=== PATIENT | male | born 1975 | race Caucasian/White ===

== ENCOUNTER → 2017-09-11 | Outpatient (CLI) | payer MEDICARE, BC ==
[2017-09-11 12:48] LABS: BASOPHILS # (AUTO) 0.03 x10^3/uL (0-0.1); BASOPHILS % (AUTO) 0 % (0-1); EOSINOPHILS # (AUTO) 0.28 x10^3/uL (0-0.4); EOSINOPHILS % (AUTO) 3 % (1-7); LYMPHOCYTES # (AUTO) 3.08 x10^3/uL (1-3.4); LYMPHOCYTES % (AUTO) 33 % (22-44); MD NO; MEAN CORPUSCULAR HGB CONC 34.6 g/dL (33.2-36.2); MEAN CORPUSCULAR VOLUME 95.5 fL (81-97); MEAN PLATELET VOLUME 10.1 fL (7.4-10.4); MONOCYTES # (AUTO) 0.81 x10^3/uL (0.2-0.8); MONOCYTES % (AUTO) 9 % (2-9); NEUTROPHILS # (AUTO) 5.15 x10^3/uL (1.8-6.8); NEUTROPHILS % (AUTO) 55 % (42-75); PLATELET COUNT 283 x10^3/uL (130-400); RED BLOOD COUNT 4.45 x10^6/uL (4.38-5.82); RED CELL DISTRIBUTION WIDTH 12.6 % (9.4-14.8)
[2017-09-11 13:21] LABS: HEMOGLOBIN A1C 10.2 % (4.2-6.3)
[2017-09-11 14:51] LABS: CHLORIDE 104 mmol/L (98-107)
[2017-09-11 15:04] LABS: ALANINE AMINOTRANSFERASE 29 U/L (12-78); ALBUMIN 3.6 g/dL (3.4-5.0); ALKALINE PHOSPHATASE 74 U/L (45-117); ANION GAP 11 mmol/L (5-15); BILIRUBIN,TOTAL 0.2 mg/dL (0.2-1.0); CALCIUM 8.8 mg/dL (8.5-10.1); CHOL/HDL RATIO 4.8; CHOLESTEROL, TOTAL 187 mg/dL (140-239); CREATININE 0.99 mg/dL (0.7-1.3); HDL CHOL % 21 % (26-37); HDL CHOLESTEROL (DIRECT) 39 mg/dL (40-60); LDL CHOLESTEROL,CALCULATED 70 mg/dL (54-169); LDL/HDL RATIO 1.8 (0.5-3.0); TRIGLYCERIDES 392 mg/dL (50-200); VLDL CHOLESTEROL 78 mg/dL (0-25)
== END | disposition home or self-care (01) ==
LOC: CFH 08:55
PROVIDERS: ATTEND Family Medicine
DX: I10 Essential (primary) hypertension (principal); E11.9 Type 2 diabetes mellitus without complications; E55.9 Vitamin D deficiency, unspecified; E78.5 Hyperlipidemia, unspecified; F17.210 Nicotine dependence, cigarettes, uncomplicated
CPT/HCPCS: 36415; 80053; 80061; 82043; 83036; 85025

== ENCOUNTER 2019-07-14 13:52 | Emergency (ER) | payer BC, MEDICARE ==
[~2019-07-14] VITALS: Ht 177.8 cm; Wt 87.0 kg
--- NOTE | 2019-07-14 14:00 | NUR ---
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
--- NOTE | 2019-07-14 14:01 | NUR ---
PT AMBULATED TO ROOM WITH A STEADY GAIT.
[2019-07-14 15:19] LABS: ALANINE AMINOTRANSFERASE 119 U/L (12-78); ALBUMIN 2.4 g/dL (3.4-5.0); ANION GAP 12 mmol/L (5-15); CALCIUM 9.1 mg/dL (8.5-10.1); CHLORIDE 83 mmol/L (98-107); CREATININE 1.35 mg/dL (0.7-1.3)
[2019-07-14 15:24] LABS: BILIRUBIN,TOTAL 14.1 mg/dL (0.2-1.0)
[2019-07-14 15:25] LABS: ALKALINE PHOSPHATASE 835 U/L (45-117); TOTAL PROTEIN 7.1 g/dL (6.4-8.2)
[2019-07-14 15:32] LABS: MEAN CORPUSCULAR HEMOGLOBIN 35.3 pg (27.5-34.5); MEAN CORPUSCULAR HGB CONC 33.1 g/dL (33.2-36.2); MEAN CORPUSCULAR VOLUME 106.4 fL (81-97); MEAN PLATELET VOLUME 11.5 fL (7.4-10.4); PLATELET COUNT 159 x10^3/uL (130-400); RED BLOOD COUNT 3.78 x10^6/uL (4.38-5.82); RED CELL DISTRIBUTION WIDTH 15.5 % (9.4-14.8)
[2019-07-14 15:34] LABS: MD YES
[2019-07-14 15:42] LABS: <PLATELET ESTIMATE> ADEQUATE; <RBC MORPHOLOGY> NORMAL; BAND#(MANUAL) 0.14 x10^3/uL; BANDS%(MANUAL) 2 % (0-7); EOS#(MANUAL) 0.14 x10^3/uL (0.0-0.4); EOS% (MANUAL) 2 % (1-7); LARGE PLATELETS 1+; LYMPH#(MANUAL) 1.37 x10^3/uL (1-3.4); LYMPHS% (MANUAL) 19 % (22-44); MYELOCYTES# (MANUAL) 0.14 x10^3/uL (0-0); MYELOCYTES% (MANUAL) 2 % (0-0); SEGS% (MANUAL) 75 % (42-75)
[2019-07-14 15:57] LABS: MICROSCOPIC NOT IND
[2019-07-14 16:15] VITALS: BP 124/81
[2019-07-14] MEDS ORDERED: INSULIN REGULAR 100 UNITS/ML, 3ML VIAL IVPush ONE (17:00)
[2019-07-14] MEDS ORDERED: SODIUM CHLORIDE 0.9% 1,000ML IVBOLUS ONE (17:00)
[2019-07-14] MEDS ORDERED: INSULIN LISPRO SINGLE DOSE, ER SQ-INSULIN ONE (17:14)
[2019-07-14] MEDS: PLEASE ENTER ALLERGIES MC SCH (17:25)
== END 2019-07-14 17:48 | disposition left against medical advice (07) ==
LOC: ED 14:52
DX: K70.10 Alcoholic hepatitis without ascites (principal); K85.20 Alcohol induced acute pancreatitis without necrosis or infection; R11.2 Nausea with vomiting, unspecified; E11.65 Type 2 diabetes mellitus with hyperglycemia; E86.0 Dehydration; I10 Essential (primary) hypertension; K21.9 Gastro-esophageal reflux disease without esophagitis; E78.5 Hyperlipidemia, unspecified; E87.1 Hypo-osmolality and hyponatremia; R00.0 Tachycardia, unspecified
CPT/HCPCS: 36415; 76700; 80053; 81003; 83615; 83690; 85025; 93005; 96374; 99285; J7030

== ENCOUNTER 2019-07-29 18:48 | Inpatient (IN) | payer MEDICARE, BC ==
[~2019-07-29] VITALS: Ht 177.8 cm; Wt 93.0 kg
--- NOTE | 2019-07-29 19:18 | NUR ---
Assumed care of patient. C/O RLQ pain x 3 days somewhat relieved by Ibuprofen. C/O x several weeks that has since resolved with zofran. Hx EtOH abuse. Detoxed 3 weeks ago, but had two shots 3 days ago. Saw PCP today and told his sodium was low and blood glucose was high and sent him to the ED. Hx DM (non-compliant) and pancreatitis. SO at bedside. Will continue to monitor.
--- NOTE | 2019-07-29 20:15 | NUR ---
Resting in [facility]. No needs.
[2019-07-29] MEDS ORDERED: SODIUM CHLORIDE FLUSH 10ML SYR IVF ONE (20:30)
[2019-07-29 20:39] LABS: MEAN CORPUSCULAR HEMOGLOBIN 35.1 pg (27.5-34.5); MEAN CORPUSCULAR HGB CONC 33.3 g/dL (33.2-36.2); MEAN CORPUSCULAR VOLUME 105.4 fL (81-97); MEAN PLATELET VOLUME 10.5 fL (7.4-10.4); PLATELET COUNT 403 x10^3/uL (130-400); RED BLOOD COUNT 3.39 x10^6/uL (4.38-5.82); RED CELL DISTRIBUTION WIDTH 14.5 % (9.4-14.8)
[2019-07-29 20:43] LABS: ALBUMIN 2.7 g/dL (3.4-5.0); ANION GAP 10 mmol/L (5-15); CHLORIDE 102 mmol/L (98-107)
--- NOTE | 2019-07-29 20:45 | NUR ---
US at bedside.
[2019-07-29 20:48] LABS: ALANINE AMINOTRANSFERASE 72 U/L (12-78); ALKALINE PHOSPHATASE 207 U/L (45-117); BILIRUBIN,TOTAL 2.2 mg/dL (0.2-1.0); CREATININE 0.98 mg/dL (0.7-1.3); TOTAL PROTEIN 7.7 g/dL (6.4-8.2)
--- NOTE | 2019-07-29 21:00 | NUR ---
Report to ORI Vanessa.
[2019-07-29 21:05] LABS: INTERNATIONAL NORMALIZED RATIO 0.94 (0.93-1.1)
--- NOTE | 2019-07-29 21:12 | NUR ---
REPORT FROM ORI BURGESS.
[2019-07-29 21:22] LABS: BASOPHILS # (AUTO) 0.05 x10^3/uL (0-0.1); BASOPHILS % (AUTO) 0 % (0-1); EOSINOPHILS # (AUTO) 0.09 x10^3/uL (0-0.4); EOSINOPHILS % (AUTO) 1 % (1-7); LYMPHOCYTES # (AUTO) 1.79 x10^3/uL (1-3.4); LYMPHOCYTES % (AUTO) 12 % (22-44); MD SCAN; MONOCYTES # (AUTO) 0.48 x10^3/uL (0.2-0.8); MONOCYTES % (AUTO) 3 % (2-9); NEUTROPHILS # (AUTO) 12.84 x10^3/uL (1.8-6.8); NEUTROPHILS % (AUTO) 84 % (42-75)
[2019-07-29] MEDS ORDERED: SODIUM CHLORIDE 0.9% 1,000ML IVBOLUS ONE (21:30)
[2019-07-29 21:41] LABS: MICROSCOPIC AUTO
[2019-07-29] MEDS ORDERED: OMNIPAQUE 350 MG/ML, 100ML BOTTLE ONE (22:00)
[2019-07-29] MEDS ORDERED: CEFTRIAXONE PMX 1GM/50ML 50 ML IVPB ONE (22:30)
[2019-07-29] MEDS ORDERED: METRONIDAZOLE PMX 500MG/100ML 100 ML IVPB ONE (22:30)
[2019-07-29] MEDS ORDERED: SODIUM CHLORIDE FLUSH 10ML SYR IVF PRN (22:30)
[2019-07-29] MEDS ORDERED: hydrALAzine 20 MG/ML, 1ML IVPush PRN (23:00)
--- NOTE | 2019-07-29 23:06 | NUR ---
PT UP TO DESK FOR PHONE CALL TO FAMILY. GAIT STRONG, INDEPENDENT. DENIES ANY FURTHER NEEDS. RETURNED TO BED WITHOUT ISSUE, CALL LIGHT IN REACH.
--- NOTE | 2019-07-29 23:10 | NUR ---
REPORT TO ORI NOEL.
[2019-07-29] MEDS: SODIUM CHLORIDE 0.9% 1,000 ML IV SCH (23:46)
[2019-07-29 23:49] VITALS: BP 132/89
[2019-07-30] MEDS: morphine SULFATE 10 MG/ML, 1ML IVPush PRN ×6 (00:07→21:05)
[2019-07-30] MEDS: PIPERACILLIN/TAZO/PMX 3.375GM 50 ML IV SCH ×4 (01:05→18:03)
[2019-07-30 02:02] VITALS: BP 136/82
[2019-07-30] MEDS: SODIUM CHLORIDE 0.9% 1,000 ML IV SCH ×2 (05:29→23:00)
[2019-07-30 05:49] LABS: BASOPHILS # (AUTO) 0.06 x10^3/uL (0-0.1); BASOPHILS % (AUTO) 1 % (0-1); EOSINOPHILS # (AUTO) 0.29 x10^3/uL (0-0.4); EOSINOPHILS % (AUTO) 3 % (1-7); LYMPHOCYTES # (AUTO) 2.03 x10^3/uL (1-3.4); LYMPHOCYTES % (AUTO) 17 % (22-44); MD NO; MEAN CORPUSCULAR HEMOGLOBIN 34.9 pg (27.5-34.5); MEAN CORPUSCULAR HGB CONC 33.8 g/dL (33.2-36.2); MEAN CORPUSCULAR VOLUME 103.4 fL (81-97); MEAN PLATELET VOLUME 9.4 fL (7.4-10.4); MONOCYTES # (AUTO) 0.66 x10^3/uL (0.2-0.8); MONOCYTES % (AUTO) 6 % (2-9); NEUTROPHILS # (AUTO) 8.74 x10^3/uL (1.8-6.8); NEUTROPHILS % (AUTO) 74 % (42-75); PLATELET COUNT 337 x10^3/uL (130-400); RED BLOOD COUNT 3.04 x10^6/uL (4.38-5.82); RED CELL DISTRIBUTION WIDTH 14.3 % (9.4-14.8)
[2019-07-30 05:57] LABS: ALBUMIN 2.1 g/dL (3.4-5.0); ANION GAP 11 mmol/L (5-15); CALCIUM 8.4 mg/dL (8.5-10.1); CHLORIDE 108 mmol/L (98-107)
[2019-07-30] MEDS ORDERED: PIPERACILLIN/TAZO/PMX 3.375GM 50 ML IV SCH (06:00)
[2019-07-30 06:01] LABS: ALANINE AMINOTRANSFERASE 49 U/L (12-78); ALKALINE PHOSPHATASE 152 U/L (45-117); BILIRUBIN, DIRECT 1.2 mg/dL (0.1-0.2); BILIRUBIN,INDIRECT 0.4 mg/dL (0.0-2.0); BILIRUBIN,TOTAL 1.6 mg/dL (0.2-1.0); TOTAL PROTEIN 6.1 g/dL (6.4-8.2)
[2019-07-30 07:25] VITALS: BP 145/78
[2019-07-30] MEDS ORDERED: THIAMINE 200 MG in SODIUM CHLORIDE 0.9% 50 ML IV ONE (08:00)
[2019-07-30] MEDS ORDERED: POTASSIUM CHLORIDE 40 MEQ in SODIUM CHLORIDE 0.9% 500 ML IV ONE (08:00)
[2019-07-30] MEDS ORDERED: LIDOCAINE 1%, 10ML ONE (09:50)
[2019-07-30] MEDS ORDERED: FLUMAZENIL 0.1 MG/1 ML, 5ML ONE (09:54)
[2019-07-30] MEDS ORDERED: NALOXONE 1 MG/ML, 2ML ONE (09:54)
[2019-07-30] MEDS ORDERED: FENTANYL PF 100 MCG/2ML ONE ×2 (09:54)
[2019-07-30] MEDS ORDERED: MIDAZOLAM 1 MG/ML, 5ML ONE (09:54)
[2019-07-30] MEDS: ONDANSETRON 2MG/ML, 2ML IVPush PRN (12:03)
[2019-07-30 12:05] VITALS: BP 118/80
[2019-07-30] MEDS: INSULIN LISPRO 100 UNITS/ML, PEN SQ-INSULIN SCH ×3 (12:59→20:50)
[2019-07-30] MEDS ORDERED: POTASSIUM CHLORIDE 20 MEQ PACKET PO ONE (14:30)
[2019-07-30] MEDS ORDERED: MAGNESIUM SULFATE PMX 2GM/50ML 50 ML IV ONE (14:30)
[2019-07-30] MEDS: POTASSIUM CHLORIDE 20 MEQ, MAGNESIUM SULFATE 1 GM, THIAMINE 200 MG, FOLIC ACID 1 MG, MV... IV SCH (15:44)
[2019-07-30] MEDS: NICOTINE 21 MG/24 HR PATCH.TD24 TD SCH (18:25)
[2019-07-30 19:24] VITALS: BP 134/86
[2019-07-30] MEDS ORDERED: INSULIN GLARGINE 100 UNITS/ML, PEN SQ-INSULIN SCH (21:00)
[2019-07-31 00:19] VITALS: BP 131/81
[2019-07-31] MEDS: ONDANSETRON 2MG/ML, 2ML IVPush PRN (00:31)
[2019-07-31] MEDS: PIPERACILLIN/TAZO/PMX 3.375GM 50 ML IV SCH ×4 (00:31→18:54)
[2019-07-31] MEDS: morphine SULFATE 10 MG/ML, 1ML IVPush PRN ×7 (00:32→23:32)
[2019-07-31 02:15] VITALS: BP 122/70
[2019-07-31] MEDS ORDERED: ACETAMINOPHEN 325 MG TABLET PO ONE (02:30)
[2019-07-31 04:57] VITALS: BP 110/79
[2019-07-31] MEDS: SODIUM CHLORIDE 0.9% 1,000 ML IV SCH ×2 (05:49→13:25)
[2019-07-31 05:54] LABS: BASOPHILS # (AUTO) 0.31 x10^3/uL (0-0.1); BASOPHILS % (AUTO) 2 % (0-1); EOSINOPHILS # (AUTO) 0.21 x10^3/uL (0-0.4); EOSINOPHILS % (AUTO) 1 % (1-7); LYMPHOCYTES # (AUTO) 3.17 x10^3/uL (1-3.4); LYMPHOCYTES % (AUTO) 21 % (22-44); MD NO; MEAN CORPUSCULAR HEMOGLOBIN 34.6 pg (27.5-34.5); MEAN CORPUSCULAR HGB CONC 33.2 g/dL (33.2-36.2); MEAN CORPUSCULAR VOLUME 103.9 fL (81-97); MEAN PLATELET VOLUME 9.6 fL (7.4-10.4); MONOCYTES # (AUTO) 0.36 x10^3/uL (0.2-0.8); MONOCYTES % (AUTO) 2 % (2-9); NEUTROPHILS # (AUTO) 10.99 x10^3/uL (1.8-6.8); NEUTROPHILS % (AUTO) 73 % (42-75); PLATELET COUNT 347 x10^3/uL (130-400); RED BLOOD COUNT 3.35 x10^6/uL (4.38-5.82); RED CELL DISTRIBUTION WIDTH 14.7 % (9.4-14.8)
[2019-07-31 05:56] LABS: ALBUMIN 2.2 g/dL (3.4-5.0); ANION GAP 8 mmol/L (5-15); CALCIUM 8.2 mg/dL (8.5-10.1); CHLORIDE 104 mmol/L (98-107)
[2019-07-31 05:59] LABS: ALANINE AMINOTRANSFERASE 52 U/L (12-78); ALKALINE PHOSPHATASE 241 U/L (45-117); BILIRUBIN,TOTAL 1.7 mg/dL (0.2-1.0); CREATININE 0.71 mg/dL (0.7-1.3); TOTAL PROTEIN 6.2 g/dL (6.4-8.2)
[2019-07-31 06:33] VITALS: BP 121/77
[2019-07-31] MEDS: INSULIN LISPRO 100 UNITS/ML, PEN SQ-INSULIN SCH ×4 (08:23→20:29)
[2019-07-31] MEDS: NICOTINE 21 MG/24 HR PATCH.TD24 TD SCH (08:26)
[2019-07-31] MEDS ORDERED: METH20TA PO (08:51)
[2019-07-31] MEDS ORDERED: TRAZ150T62 PO (08:51)
[2019-07-31 12:30] VITALS: BP 132/81
[2019-07-31] MEDS: INSULIN GLARGINE 100 UNITS/ML, PEN SQ-INSULIN SCH ×2 (17:20→20:29)
[2019-07-31] MEDS: ENOXAPARIN 40 MG/0.4 ML SQ SCH (17:20)
[2019-07-31] MEDS: POTASSIUM CHLORIDE 20 MEQ, MAGNESIUM SULFATE 1 GM, THIAMINE 200 MG, FOLIC ACID 1 MG, MV... IV SCH (18:19)
[2019-07-31 19:08] VITALS: BP 133/88
[2019-08-01] MEDS: PIPERACILLIN/TAZO/PMX 3.375GM 50 ML IV SCH ×4 (00:51→18:45)
[2019-08-01 01:38] VITALS: BP 146/92
[2019-08-01] MEDS: morphine SULFATE 10 MG/ML, 1ML IVPush PRN ×7 (02:39→21:53)
[2019-08-01 05:24] LABS: BASOPHILS # (AUTO) 0.09 x10^3/uL (0-0.1); BASOPHILS % (AUTO) 1 % (0-1); EOSINOPHILS # (AUTO) 0.34 x10^3/uL (0-0.4); EOSINOPHILS % (AUTO) 3 % (1-7); LYMPHOCYTES # (AUTO) 2.49 x10^3/uL (1-3.4); LYMPHOCYTES % (AUTO) 19 % (22-44); MD NO; MEAN CORPUSCULAR HEMOGLOBIN 34.3 pg (27.5-34.5); MEAN CORPUSCULAR HGB CONC 33.1 g/dL (33.2-36.2); MEAN CORPUSCULAR VOLUME 103.8 fL (81-97); MEAN PLATELET VOLUME 9.4 fL (7.4-10.4); MONOCYTES # (AUTO) 0.93 x10^3/uL (0.2-0.8); MONOCYTES % (AUTO) 7 % (2-9); NEUTROPHILS # (AUTO) 9.09 x10^3/uL (1.8-6.8); NEUTROPHILS % (AUTO) 70 % (42-75); PLATELET COUNT 349 x10^3/uL (130-400); RED BLOOD COUNT 3.29 x10^6/uL (4.38-5.82); RED CELL DISTRIBUTION WIDTH 14.8 % (9.4-14.8)
[2019-08-01 05:40] LABS: CHLORIDE 103 mmol/L (98-107)
[2019-08-01 05:48] LABS: ALANINE AMINOTRANSFERASE 47 U/L (12-78); ALBUMIN 2.1 g/dL (3.4-5.0); ALKALINE PHOSPHATASE 197 U/L (45-117); ANION GAP 9 mmol/L (5-15); BILIRUBIN,TOTAL 1.4 mg/dL (0.2-1.0); CALCIUM 8.3 mg/dL (8.5-10.1); TOTAL PROTEIN 6.4 g/dL (6.4-8.2)
[2019-08-01 07:10] VITALS: BP 145/91
[2019-08-01] MEDS ORDERED: INSULIN GLARGINE 100 UNITS/ML, PEN SQ-INSULIN ONE (08:30)
[2019-08-01] MEDS ORDERED: POTASSIUM CHLORIDE 40 MEQ in SODIUM CHLORIDE 0.9% 500 ML IV ONE (08:30)
[2019-08-01] MEDS: NICOTINE 21 MG/24 HR PATCH.TD24 TD SCH (08:37)
[2019-08-01] MEDS: MULTIVITAMIN 1 TABLET PO SCH (08:37)
[2019-08-01] MEDS: INSULIN LISPRO 100 UNITS/ML, PEN SQ-INSULIN SCH ×4 (08:38→21:09)
[2019-08-01] MEDS ORDERED: INSULIN LISPRO 100 UNITS/ML, PEN SQ-INSULIN SCH (11:00)
[2019-08-01 14:00] VITALS: BP 132/97
[2019-08-01] MEDS: ENOXAPARIN 40 MG/0.4 ML SQ SCH (16:31)
[2019-08-01] MEDS: INSULIN GLARGINE 100 UNITS/ML, PEN SQ-INSULIN SCH (21:08)
[2019-08-01 21:09] VITALS: BP 148/96
[2019-08-02] MEDS: PIPERACILLIN/TAZO/PMX 3.375GM 50 ML IV SCH ×4 (00:55→18:15)
[2019-08-02] MEDS: morphine SULFATE 10 MG/ML, 1ML IVPush PRN ×7 (00:56→22:12)
[2019-08-02 00:59] VITALS: BP 155/98
[2019-08-02 04:41] LABS: BASOPHILS # (AUTO) 0.07 x10^3/uL (0-0.1); BASOPHILS % (AUTO) 1 % (0-1); EOSINOPHILS # (AUTO) 0.31 x10^3/uL (0-0.4); EOSINOPHILS % (AUTO) 3 % (1-7); LYMPHOCYTES # (AUTO) 2.49 x10^3/uL (1-3.4); LYMPHOCYTES % (AUTO) 27 % (22-44); MD NO; MEAN CORPUSCULAR HGB CONC 32.8 g/dL (33.2-36.2); MEAN CORPUSCULAR VOLUME 103.8 fL (81-97); MEAN PLATELET VOLUME 8.6 fL (7.4-10.4); MONOCYTES # (AUTO) 0.72 x10^3/uL (0.2-0.8); MONOCYTES % (AUTO) 8 % (2-9); NEUTROPHILS % (AUTO) 61 % (42-75); PLATELET COUNT 343 x10^3/uL (130-400); RED BLOOD COUNT 2.97 x10^6/uL (4.38-5.82); RED CELL DISTRIBUTION WIDTH 14.7 % (9.4-14.8)
[2019-08-02 04:47] LABS: ALANINE AMINOTRANSFERASE 33 U/L (12-78); ANION GAP 9 mmol/L (5-15); CALCIUM 8.9 mg/dL (8.5-10.1); CHLORIDE 102 mmol/L (98-107); CREATININE 0.44 mg/dL (0.7-1.3)
[2019-08-02 04:50] LABS: ALKALINE PHOSPHATASE 158 U/L (45-117); BILIRUBIN,TOTAL 1.1 mg/dL (0.2-1.0); TOTAL PROTEIN 5.7 g/dL (6.4-8.2)
[2019-08-02 06:31] VITALS: BP 136/93
[2019-08-02] MEDS: INSULIN LISPRO 100 UNITS/ML, PEN SQ-INSULIN SCH ×4 (08:16→21:00)
[2019-08-02] MEDS: NICOTINE 21 MG/24 HR PATCH.TD24 TD SCH (08:16)
[2019-08-02] MEDS: ONDANSETRON 2MG/ML, 2ML IVPush PRN (08:17)
[2019-08-02] MEDS: MULTIVITAMIN 1 TABLET PO SCH (08:17)
[2019-08-02 13:04] VITALS: BP 131/81
[2019-08-02] MEDS: ENOXAPARIN 40 MG/0.4 ML SQ SCH (16:31)
[2019-08-02 19:35] VITALS: BP 140/97
[2019-08-02] MEDS: INSULIN GLARGINE 100 UNITS/ML, PEN SQ-INSULIN SCH (21:00)
[2019-08-03] MEDS: PIPERACILLIN/TAZO/PMX 3.375GM 50 ML IV SCH ×2 (00:35→06:39)
[2019-08-03] MEDS: morphine SULFATE 10 MG/ML, 1ML IVPush PRN ×4 (01:19→11:37)
[2019-08-03 01:40] VITALS: BP 154/95
[2019-08-03 05:36] LABS: BASOPHILS % (AUTO) 1 % (0-1); EOSINOPHILS # (AUTO) 0.34 x10^3/uL (0-0.4); EOSINOPHILS % (AUTO) 4 % (1-7); LYMPHOCYTES # (AUTO) 2.36 x10^3/uL (1-3.4); LYMPHOCYTES % (AUTO) 30 % (22-44); MD NO; MEAN CORPUSCULAR HEMOGLOBIN 34.5 pg (27.5-34.5); MEAN CORPUSCULAR HGB CONC 33.8 g/dL (33.2-36.2); MEAN CORPUSCULAR VOLUME 102.1 fL (81-97); MEAN PLATELET VOLUME 9.3 fL (7.4-10.4); MONOCYTES # (AUTO) 0.75 x10^3/uL (0.2-0.8); MONOCYTES % (AUTO) 10 % (2-9); NEUTROPHILS # (AUTO) 4.29 x10^3/uL (1.8-6.8); NEUTROPHILS % (AUTO) 55 % (42-75); PLATELET COUNT 351 x10^3/uL (130-400); RED BLOOD COUNT 2.92 x10^6/uL (4.38-5.82); RED CELL DISTRIBUTION WIDTH 14.7 % (9.4-14.8)
[2019-08-03 06:37] VITALS: BP 143/85
[2019-08-03] MEDS: MULTIVITAMIN 1 TABLET PO SCH (07:48)
[2019-08-03] MEDS: ONDANSETRON 2MG/ML, 2ML IVPush PRN (07:48)
[2019-08-03] MEDS: NICOTINE 21 MG/24 HR PATCH.TD24 TD SCH (07:49)
[2019-08-03] MEDS: INSULIN LISPRO 100 UNITS/ML, PEN SQ-INSULIN SCH ×2 (07:49→11:38)
[2019-08-03] MEDS ORDERED: AMOXICILLIN/CLAV 875-125MG TABLET PO SCH (11:30)
[2019-08-03] MEDS ORDERED: INSU100I11 SQ-INSULIN (11:39)
[2019-08-03] MEDS ORDERED: MULT-449 PO (11:39)
[2019-08-03] MEDS ORDERED: HYDR-3240 PO (11:39)
[2019-08-03] MEDS ORDERED: INSU100I13 SQ-INSULIN (11:39)
[2019-08-03] MEDS ORDERED: AMOX1TAB12 PO (11:39)
[2019-08-03 12:13] VITALS: BP 129/86
[2019-08-03] MEDS ORDERED: INSULIN GLARGINE 100 UNITS/ML, PEN SQ-INSULIN SCH (21:00)
== END 2019-08-03 13:15 | disposition home or self-care (01) | DRG 371 ==
LOC: ED 22:49 → EDIP 22:53 → 4EST 23:27 → DCLOUNGE 08-03 13:08
PROVIDERS: ADMIT Internal Medicine; ATTEND Internal Medicine
PROC: 0W9G30Z Drainage of Peritoneal Cavity with Drainage Device, Percutaneous Approach (ICD-10-PCS; principal; 2019-07-30)
DX: K63.0 Abscess of intestine (principal); K63.1 Perforation of intestine (nontraumatic); E44.0 Moderate protein-calorie malnutrition; E87.1 Hypo-osmolality and hyponatremia; D53.9 Nutritional anemia, unspecified; E11.65 Type 2 diabetes mellitus with hyperglycemia; E78.5 Hyperlipidemia, unspecified; E87.6 Hypokalemia; F10.21 Alcohol dependence, in remission; F12.90 Cannabis use, unspecified, uncomplicated; F17.210 Nicotine dependence, cigarettes, uncomplicated; I10 Essential (primary) hypertension; B96.6 Bacteroides fragilis [B. fragilis] as the cause of diseases classified elsewhere; K21.9 Gastro-esophageal reflux disease without esophagitis; K70.9 Alcoholic liver disease, unspecified; D72.829 Elevated white blood cell count, unspecified; K76.0 Fatty (change of) liver, not elsewhere classified; Z98.1 Arthrodesis status; Z68.29 Body mass index [BMI] 29.0-29.9, adult; Z87.898 Personal history of other specified conditions; Z79.899 Other long term (current) drug therapy; Z79.84 Long term (current) use of oral hypoglycemic drugs; Z79.4 Long term (current) use of insulin; Z90.89 Acquired absence of other organs
CPT/HCPCS: 36415; 49406; 74177; 75989; 76700; 80048; 80053; 80076; 80307; 81001; 82962; 83036; 83605; 83690; 83735; 84100; 85025; 85610; 85730; 87040; 87070; 87075; 87077; 87186; 87205; 93005; 99156; 99157; G0378; J1650; J2250; J2405; J2543; J3010; J3411; J3475; J3480; Q9967; C1729; C1769; J1815; J2270; J2310; J7030; J7040